=== PATIENT | female | born 1970 | race American Indian/Alaskan Native ===

== ENCOUNTER 2017-09-04 13:01 | Emergency (ER) | payer MEDICAID, OTHER ==
[2017-09-04] MEDS ORDERED: Sodium Chloride 0.9% 10 ML Syringe FLUSH PRN ×3 (14:32→14:39)
[2017-09-04] MEDS ORDERED: Metoprolol Tartrate 5 MG/5 ML SDV IVPUSH ONE (14:38)
--- NOTE | 2017-09-04 14:40 | EDM.PDOC ---
ED HPI GENERAL MEDICAL PROBLEM - General Chief Complaint: General Stated Complaint: BROUGHT FROM CLINIC, KIDNEY FUNCTION Time Seen by Provider: 09/04/17 14:28 Source of Information: Reports: Patient, Family, RN Notes Reviewed History Limitations: Reports: No Limitations - History of Present Illness INITIAL COMMENTS - FREE TEXT/NARRATIVE: 46-year-old female sent over from clinic today for further evaluation of renal function she was being evaluated by Dr. Mcintosh nephrology who called me concerned about this patient's renal function which has been worsening she has had a weight gain and fluid overload history of poorly controlled diabetes mellitus type 2 has been on lisinopril with poorly controlled blood pressure as well as ibuprofen his concern was a development of the +1 edema bilaterally and the worsening renal function. He has asked for a variety of lab work per his recommendations CBC BMP PTH phosphate liver function test vitamin D urinalysis with urine protein creatinine ratio as well as renal ultrasound and serologic workup. She has no complaints at this time - Related Data Allergies Allergy/AdvReac Type Severity Reaction Status Date / Time ampicillin Allergy Hives Verified 06/20/13 14:19 tramadol Allergy Abdominal Verified 06/20/13 14:19 Pain duloxetine HCl AdvReac Nausea Verified 07/19/14 13:04 [From Cymbalta] Penicillins AdvReac Rash Verified 07/19/14 13:04 trazodone AdvReac Delusions Verified 07/19/14 13:04 Home Meds: Home Meds Albuterol Sulfate [Proair Hfa] 2 puff IH Q4HR PRN 07/19/14 [History] Albuterol [Proventil] 1 dose NEB Q6HR PRN 07/19/14 [History] Ferrous Sulfate 325 mg PO DAILY 07/19/14 [History] Multivitamin [Multi Vitamin Daily] 1 each PO DAILY 07/19/14 [History] Furosemide [Furosemide] 20 mg PO BID 09/04/17 [History] Insulin Aspart [NovoLOG] 4 - 10 units SUBCNJ TID 09/04/17 [History] Insulin Glargine,Hum.Rec.Anlog [Lantus Solostar] 10 units SUBCNJ BEDTIME [History] Lisinopril [Lisinopril] 20 mg PO DAILY 09/04/17 [History] Metoprolol Tartrate [Metoprolol Tartrate] 25 mg PO BID 09/04/17 [History] amLODIPine [Norvasc] 5 mg PO DAILY 09/04/17 [History] cloNIDine [Catapres] 0.1 mg PO DAILY 09/04/17 [History] Past Medical History HEENT History: Reports: Impaired Vision Cardiovascular History: Reports: Hypertension Respiratory History: Reports: Asthma 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 History: Reports: 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: Neurological History: Reports: Other (See Below) Other Neuro History: bells palsy Endocrine/Metabolic History: Reports: Diabetes, Type II - Infectious Disease History Infectious Disease History: Reports: Chicken Pox, Measles, Mumps - Past Surgical History Female Surgical History: Reports: Section Social & Family History - Tobacco Use Smoking Status *Q: Light Tobacco Smoker Years of Tobacco use: 31 Packs/Tins Daily: 0.5 Used Tobacco, but Quit: No Second Hand Smoke Exposure: Yes - Caffeine Use Caffeine Use: Reports: Soda - Recreational Drug Use Recreational Drug Use: Yes 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 ED ROS GENERAL - Review of Systems Review Of Systems: See Below Constitutional: Reports: No Symptoms (Tourette's) HEENT: Reports: No Symptoms Respiratory: Reports: No Symptoms Cardiovascular: Reports: No Symptoms GI/Abdominal: Reports: No Symptoms : Reports: No Symptoms ED EXAM, GENERAL - Physical Exam Exam: See Below Exam Limited By: No Limitations General Appearance: Alert, WD/WN, No Apparent Distress Head: Atraumatic, Normocephalic Respiratory/Chest: No Respiratory Distress, Lungs Clear, Normal Breath Sounds, No Accessory Muscle Use Cardiovascular: Regular Rate, Rhythm, No Murmur Course - Vital Signs Last Recorded V/S: Last Vital Signs Temp 96.5 F 09/04/17 13:28 Pulse 81 09/04/17 15:51 Resp 16 09/04/17 15:51 BP 182/110 H 09/04/17 15:51 Pulse Ox 96 09/04/17 15:51 - Orders/Labs/Meds Orders: Active Orders 24 hr Category Date Time Status Peripheral IV Care [RC] . DIRECTED Care 09/04/17 14:33 Active Peripheral IV Care [RC] . DIRECTED Care 09/04/17 14:39 Active Sodium Chloride 0.9% [Saline Flush] Med 09/04/17 14:32 Active 10 ml FLUSH ASDIRECTED PRN Sodium Chloride 0.9% [Saline Flush] Med 09/04/17 14:32 Active 10 ml FLUSH ASDIRECTED PRN Sodium Chloride 0.9% [Saline Flush] Med 09/04/17 14:39 Active 10 ml FLUSH ASDIRECTED PRN Peripheral IV Insertion Adult [OM.PC] Urgent Oth 09/04/17 14:32 Ordered Peripheral IV Insertion Adult [OM.PC] Urgent Oth 09/04/17 14:39 Ordered Medication Orders Sodium Chloride (Saline Flush) 10 ml FLUSH ASDIRECTED PRN PRN Reason: Keep Vein Open Last Admin: 09/04/17 15:04 Dose: 10 ml Sodium Chloride (Saline Flush) 10 ml FLUSH ASDIRECTED PRN PRN Reason: Keep Vein Open Last Admin: 09/04/17 15:04 Dose: 10 ml Sodium Chloride (Saline Flush) 10 ml FLUSH ASDIRECTED PRN PRN Reason: Keep Vein Open Last Admin: 09/04/17 15:04 Dose: 10 ml Labs: Laboratory Tests 09/04/17 09/04/17 09/04/17 Range/Units 14:34 14:44 14:44 WBC 11.7 H (4.5-11.0) K/uL RBC 3.14 L (3.30-5.50) M/uL Hgb 9.7 L (12.0-15.0) g/dL Hct 29.5 L (36.0-48.0) % MCV 94 (80-98) fL MCH 31 (27-31) pg MCHC 33 (32-36) % Plt Count 342 (150-400) K/uL Neut % (Auto) 74 H (36-66) % Lymph % (Auto) 16 L (24-44) % [place] % (Auto) 5 (2-6) % Eos % (Auto) 5 H (2-4) % Baso % (Auto) 1 (0-1) % Sodium 145 (140-148) mmol/L Potassium 4.1 (3.6-5.2) mmol/L Chloride 112 H (100-108) mmol/L Carbon Dioxide 22 (21-32) mmol/L Anion Gap 15.1 H (5.0-14.0) mmol/L BUN 48 H (7-18) mg/dL Creatinine 4.0 H* (0.6-1.0) mg/dL Est Cr Clr Drug Dosing 16.80 mL/min Estimated GFR (MDRD) 12 L (>60) Glucose 147 H (74-106) mg/dL Calcium 7.8 L (8.5-10.1) mg/dL Phosphorus 6.0 H (2.5-4.9) mg/dL Magnesium 2.0 (1.8-2.4) mg/dL Total Bilirubin 0.2 (0.2-1.0) mg/dL AST 15 (15-37) U/L ALT 18 (12-78) U/L Alkaline Phosphatase 150 H (46-116) U/L Total Protein 6.1 L (6.4-8.2) g/dL Albumin 1.8 L (3.4-5.0) g/dL Globulin 4.3 H (2.3-3.5) g/dL Albumin/Globulin Ratio 0.4 L (1.2-2.2) Vitamin D 25-Hydroxy (30-100) ng/mL Urine Color Urine Appearance Urine pH (4.5-8.0) Ur Specific [place] (1.008-1.030) Urine Protein (NEGATIVE) mg/dL Urine Glucose (UA) (NEGATIVE) mg/dL Urine Ketones (NEGATIVE) mg/dL Urine Occult Blood (NEGATIVE) Urine Nitrite (NEGATIVE) Urine Bilirubin (NEGATIVE) Urine Urobilinogen (NORMAL) mg/dL Ur Leukocyte Esterase (NEGATIVE) Urine RBC (0-5) Urine WBC (0-5) Ur Epithelial Cells Amorphous Sediment Urine Bacteria Urine Mucus Ur Random Creatinine 24.5 (20.0-370.0) mg/dL U Random Total Protein 653.0 H (6.0-11.9) mg/dL Protein/Creatinin Ratio 42227.1 H (21.0-161.0) mg/g 09/04/17 09/04/17 Range/Units 14:44 15:32 WBC (4.5-11.0) K/uL RBC (3.30-5.50) M/uL Hgb (12.0-15.0) g/dL Hct (36.0-48.0) % MCV (80-98) fL MCH (27-31) pg MCHC (32-36) % Plt Count (150-400) K/uL Neut % (Auto) (36-66) % Lymph % (Auto) (24-44) % [place] % (Auto) (2-6) % Eos % (Auto) (2-4) % Baso % (Auto) (0-1) % Sodium (140-148) mmol/L Potassium (3.6-5.2) mmol/L Chloride (100-108) mmol/L Carbon Dioxide (21-32) mmol/L Anion Gap (5.0-14.0) mmol/L BUN (7-18) mg/dL Creatinine (0.6-1.0) mg/dL Est Cr Clr Drug Dosing mL/min Estimated GFR (MDRD) (>60) Glucose (74-106) mg/dL Calcium (8.5-10.1) mg/dL Phosphorus (2.5-4.9) mg/dL Magnesium (1.8-2.4) mg/dL Total Bilirubin (0.2-1.0) mg/dL AST (15-37) U/L ALT (12-78) U/L Alkaline Phosphatase (46-116) U/L Total Protein (6.4-8.2) g/dL Albumin (3.4-5.0) g/dL Globulin (2.3-3.5) g/dL Albumin/Globulin Ratio (1.2-2.2) Vitamin D 25-Hydroxy 5.1 L (30-100) ng/mL Urine Color Yellow Urine Appearance Slightly cloudy Urine pH 7.0 (4.5-8.0) Ur Specific [place] 1.005 L (1.008-1.030) Urine Protein 500 H (NEGATIVE) mg/dL Urine Glucose (UA) 50 H (NEGATIVE) mg/dL Urine Ketones Negative (NEGATIVE) mg/dL Urine Occult Blood Trace (NEGATIVE) Urine Nitrite Negative (NEGATIVE) Urine Bilirubin Negative (NEGATIVE) Urine Urobilinogen Normal (NORMAL) mg/dL Ur Leukocyte Esterase Negative (NEGATIVE) Urine RBC 0-5 (0-5) Urine WBC 0-5 (0-5) Ur Epithelial Cells Rare Amorphous Sediment Not seen Urine Bacteria Rare Urine Mucus Not seen Ur Random Creatinine (20.0-370.0) mg/dL U Random Total Protein (6.0-11.9) mg/dL Protein/Creatinin Ratio (21.0-161.0) mg/g Meds: Medications Generic Name Dose Route Start Last Admin Trade Name Freq PRN Reason Stop Dose Admin Sodium Chloride 10 ml 09/04/17 14:32 09/04/17 15:04 Saline Flush FLUSH 10 ml ASDIRECTED PRN Administration Keep Vein Open Sodium Chloride 10 ml 09/04/17 14:32 09/04/17 15:04 Saline Flush FLUSH 10 ml ASDIRECTED PRN Administration Keep Vein Open Sodium Chloride 10 ml 09/04/17 14:39 09/04/17 15:04 Saline Flush FLUSH 10 ml ASDIRECTED PRN Administration Keep Vein Open Discontinued Medications Generic Name Dose Route Start Last Admin Trade Name Freq PRN Reason Stop Dose Admin Hydralazine HCl 20 mg 09/04/17 16:16 Apresoline IVPUSH 09/04/17 16:17 ONETIME ONE Metoprolol Tartrate 2.5 mg 09/04/17 14:38 09/04/17 15:02 Lopressor IVPUSH 09/04/17 14:39 2.5 mg ONETIME ONE Administration Nitroglycerin 0.4 mg 09/04/17 15:22 09/04/17 15:28 Nitrostat SL 09/04/17 15:23 0.4 mg ONETIME ONE Administration Departure - Departure Time of Disposition: 16:31 Disposition: DC/Tfer to Acute Hospital 02 Condition: Fair Clinical Impression: Acute renal failure Qualifiers: Acute renal failure type: unspecified Qualified Code(s): N17.9 - Acute kidney failure, unspecified - Discharge Information Referrals: PCP,None [Primary Care Provider] - Forms: ED Department Discharge - My Orders Last 24 Hours: My Active Orders 09/04/17 14:32 Sodium Chloride 0.9% [Saline Flush] 10 ml FLUSH ASDIRECTED PRN Sodium Chloride 0.9% [Saline Flush] 10 ml FLUSH ASDIRECTED PRN Peripheral IV Insertion Adult [OM.PC] Urgent 09/04/17 14:33 Peripheral IV Care [RC] . DIRECTED 09/04/17 14:39 Peripheral IV Care [RC] . DIRECTED Sodium Chloride 0.9% [Saline Flush] 10 ml FLUSH ASDIRECTED PRN Peripheral IV Insertion Adult [OM.PC] Urgent - Assessment/Plan Last 24 Hours: My Active Orders 09/04/17 14:32 Sodium Chloride 0.9% [Saline Flush] 10 ml FLUSH ASDIRECTED PRN Sodium Chloride 0.9% [Saline Flush] 10 ml FLUSH ASDIRECTED PRN Peripheral IV Insertion Adult [OM.PC] Urgent 09/04/17 14:33 Peripheral IV Care [RC] . DIRECTED 09/04/17 14:39 Peripheral IV Care [RC] . DIRECTED Sodium Chloride 0.9% [Saline Flush] 10 ml FLUSH ASDIRECTED PRN Peripheral IV Insertion Adult [OM.PC] Urgent Plan: Assessment Acuity = acute Site and laterality = acute kidney injury stage GV and hypertensive urgency Etiology = unknown etiology Manifestations = none Location of injury = Home Lab values = WBC elevated 11.7 consistent leukocytosis, hemoglobin low at 9.7 consistent with normochromic anemia creatinine elevated at 4.0 consistent with acute kidney injury stage GV phosphorus low at 6.0 consistent with hypophosphatemia albumin low at 1.8 consistent with hypoalbuminemia urine protein greater than 500 consistent proteinuria leukosis greater than 50 consistent glucose urea the protein threatening ratio random is greater than 26, 000 Plan Called and discussed the case with Dr. Street at [facility] kindly accepted the patient in transport she has been having blood pressure problems consistent with hypertensive urgency she was initially given 2.5 mg metoprolol as well as nitroglycerin sublingual followed by 20 mg of hydralazine to control her blood pressure she will be transported via EMS ground This note was dictated using Silk voice recognition software please call with any questions on syntax or aiden.
[2017-09-04] MEDS ORDERED: Nitroglycerin 0.4 MG Tab.SL SL ONE (15:22)
[2017-09-04] MEDS ORDERED: hydrALAZINE 20 MG/ML SDV IVPUSH ONE (16:16)
[2017-09-04] MEDS ORDERED: niCARdipine HCl 25 MG in Sodium Chloride 0.9% 240 ML IV SCH (17:00)
[2017-09-04 17:11] VITALS: BP 218/107
== END 2017-09-04 18:05 ==
LOC: JP.ED 13:01
DX: N17.9 Acute kidney failure, unspecified (principal); I16.0 Hypertensive urgency; I10 Essential (primary) hypertension; J45.909 Unspecified asthma, uncomplicated; E11.9 Type 2 diabetes mellitus without complications; F17.210 Nicotine dependence, cigarettes, uncomplicated; Z79.4 Long term (current) use of insulin; Z79.899 Other long term (current) drug therapy; Z88.0 Allergy status to penicillin; Z88.1 Allergy status to other antibiotic agents; Z88.5 Allergy status to narcotic agent; Z88.8 Allergy status to other drugs, medicaments and biological substances
CPT/HCPCS: 36415; 80053; 81001; 82306; 82570; 83735; 84100; 84156; 85025; 96365; 96375; 99284; A9270; J0360; J7050; J3490

== ENCOUNTER 2018-04-26 16:51 | Emergency (ER) | payer MEDICARE, MEDICAID ==
[2018-04-26 17:40] VITALS: BP 134/72
--- NOTE | 2018-04-26 18:24 | EDM.PDOC ---
ED HPI GENERAL MEDICAL PROBLEM - General Chief Complaint: Cardiovascular Problem Stated Complaint: CATHITER IS LEEKING Time Seen by Provider: 04/26/18 17:43 Source of Information: Reports: Patient History Limitations: Reports: No Limitations - History of Present Illness INITIAL COMMENTS - FREE TEXT/NARRATIVE: 47 yo female presents with bloody drainage from left dialysis cath. new placement earlier this week. It was used yesterday without difficulty. pt noticed bloody drainage this AM. - Related Data Allergies Allergy/AdvReac Type Severity Reaction Status Date / Time ampicillin Allergy Hives Verified 04/26/18 17:48 tramadol Allergy Abdominal Verified 04/26/18 17:48 Pain duloxetine HCl AdvReac Nausea Verified 04/26/18 17:48 [From Cymbalta] Penicillins AdvReac Rash Verified 04/26/18 17:48 trazodone AdvReac Delusions Verified 04/26/18 17:48 Home Meds: Home Meds Albuterol Sulfate [Proair Hfa] 2 puff IH Q4HR PRN 07/19/14 [History] Albuterol [Proventil] 1 dose NEB Q6HR PRN 07/19/14 [History] Multivitamin [Multi Vitamin Daily] 1 each PO DAILY 07/19/14 [History] Insulin Aspart [NovoLOG] 4 - 10 units SUBCNJ TID 09/04/17 [History] Insulin Glargine,Hum.Rec.Anlog [Lantus Solostar] 10 units SUBCNJ BEDTIME [History] amLODIPine [Norvasc] 5 mg PO DAILY 09/04/17 [History] cloNIDine [Catapres] 0.1 mg PO DAILY 09/04/17 [History] Aspirin 04/26/18 [History] Clopidogrel Bisulfate [Clopidogrel] 04/26/18 [History] Gabapentin [Neurontin] 04/26/18 [History] Isosorbide Dinitrate 04/26/18 [History] Past Medical History HEENT History: Reports: Impaired Vision Cardiovascular History: Reports: Hypertension Respiratory History: Reports: Asthma 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 History: Reports: Renal Disease [employer]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: Neurological History: Reports: Other (See Below) Other Neuro History: bells palsy Endocrine/Metabolic History: Reports: Diabetes, Type II - Infectious Disease History Infectious Disease History: Reports: Chicken Pox, Measles, Mumps - Past Surgical History Female Surgical History: Reports: Section Social & Family History - Tobacco Use Smoking Status *Q: Current Every Day Smoker Years of Tobacco use: 30 Packs/Tins Daily: 0.5 - Caffeine Use Caffeine Use: Reports: Soda ED ROS GENERAL - Review of Systems Review Of Systems: See Below Constitutional: Denies: Fever, Chills Respiratory: Denies: Shortness of Breath Cardiovascular: Denies: Chest Pain ED EXAM, GENERAL - Physical Exam Exam: See Below Exam Limited By: No Limitations General Appearance: Alert, WD/WN, No Apparent Distress Neck: Normal Inspection, Supple, Non-Tender, Full Range of Motion. No: Lymphadenopathy (R), Lymphadenopathy (L) Respiratory/Chest: No Respiratory Distress, Lungs Clear, Normal Breath Sounds, No Accessory Muscle Use, Chest Non-Tender Cardiovascular: Regular Rate, Rhythm, Other (left chest tunnel cath small amount dried bloody drainage) Course - Vital Signs Last Recorded V/S: Last Vital Signs Temp 35.1 C L 04/26/18 17:39 Pulse 67 04/26/18 17:39 Resp 14 04/26/18 17:39 BP 134/72 04/26/18 17:39 Pulse Ox 100 04/26/18 17:39 - Re-Assessments/Exams Free Text/Narrative Re-Assessment/Exam: 04/26/18 18:32 dressing was changed by nurse. Crusted bloody drainage. redressed and monitored. no return of bleeding 04/26/18 18:46 04/26/18 18:48 pt left ER without reevaluation Departure - Departure Time of Disposition: 18:45 Disposition: Home, Self-Care 01 Condition: Good Clinical Impression: Bleeding due to dialysis catheter placement Qualifiers: Encounter type: initial encounter Qualified Code(s): T82.838A - Hemorrhage due to vascular prosthetic devices, implants and grafts, initial encounter Referrals: PCP,None [Primary Care Provider] - Forms: ED Department Discharge Additional Instructions: return if bleeding continues
== END 2018-04-26 18:52 | disposition home or self-care (01) ==
LOC: JP.ED 16:51
DX: T82.838A Hemorrhage due to vascular prosthetic devices, implants and grafts, initial encounter (principal); I10 Essential (primary) hypertension; E11.9 Type 2 diabetes mellitus without complications; F17.210 Nicotine dependence, cigarettes, uncomplicated; Z79.4 Long term (current) use of insulin; Z79.82 Long term (current) use of aspirin; Z79.899 Other long term (current) drug therapy; Z88.0 Allergy status to penicillin; Z88.1 Allergy status to other antibiotic agents; Z88.5 Allergy status to narcotic agent; Z88.8 Allergy status to other drugs, medicaments and biological substances
CPT/HCPCS: 99284

== ENCOUNTER 2018-06-06 07:45 | Emergency (ER) | payer MEDICARE, MEDICAID ==
--- NOTE | 2018-06-06 08:16 | EDM.PDOC ---
ED HPI GENERAL MEDICAL PROBLEM - General Chief Complaint: General Stated Complaint: MEDICAL VIA [facility] Time Seen by Provider: 06/06/18 08:00 Source of Information: Reports: Patient, EMS History Limitations: Reports: No Limitations - History of Present Illness INITIAL COMMENTS - FREE TEXT/NARRATIVE: 47-year-old female with renal failure, gets dialysis 3 times a week but missed her run. She was in the hospital last week for anemia, and left AMA. She is having ongoing vaginal bleeding. This morning she has dialysis scheduled for 10:00, but she woke up at 4 AM not feeling well. Mild nausea, no shortness of breath or pain. Her main complaint was she was lightheaded when standing. She called the ambulance and refused to go to [place] so they brought her here. She has dialysis scheduled in 2 hours. Her vitals are stable. According to the patient they don't know why she is becoming anemic. - Related Data Allergies Allergy/AdvReac Type Severity Reaction Status Date / Time ampicillin Allergy Hives Verified 06/06/18 07:56 tramadol Allergy Abdominal Verified 06/06/18 07:56 Pain duloxetine HCl AdvReac Nausea Verified 06/06/18 07:56 [From Cymbalta] Penicillins AdvReac Rash Verified 06/06/18 07:56 trazodone AdvReac Delusions Verified 06/06/18 07:56 Home Meds: Home Meds Albuterol Sulfate [Proair Hfa] 2 puff IH Q4HR PRN 07/19/14 [History] Albuterol [Proventil] 1 dose NEB Q6HR PRN 07/19/14 [History] Multivitamin [Multi Vitamin Daily] 1 each PO DAILY 07/19/14 [History] Insulin Aspart [NovoLOG] 4 - 10 units SUBCNJ TID 09/04/17 [History] Insulin Glargine,Hum.Rec.Anlog [Lantus Solostar] 10 units SUBCNJ BEDTIME [History] amLODIPine [Norvasc] 5 mg PO DAILY 09/04/17 [History] cloNIDine [Catapres] 0.1 mg PO DAILY 09/04/17 [History] Aspirin 04/26/18 [History] Clopidogrel Bisulfate [Clopidogrel] 04/26/18 [History] Gabapentin [Neurontin] 04/26/18 [History] Isosorbide Dinitrate 04/26/18 [History] Past Medical History HEENT History: Reports: Impaired Vision Cardiovascular History: Reports: Hypertension, [place] Respiratory History: Reports: Asthma 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 History: Reports: Dialysis, 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: Neurological History: Reports: Other (See Below) Other Neuro History: bells palsy Psychiatric History: Reports: Addiction Endocrine/Metabolic History: Reports: Diabetes, Type II - Infectious Disease History Infectious Disease History: Reports: Chicken Pox, Measles, Mumps - Past Surgical History Cardiovascular Surgical History: Reports: Coronary Artery Stent Female Surgical History: Reports: Section Social & Family History - Tobacco Use Smoking Status *Q: Light Tobacco Smoker Years of Tobacco use: 30 Packs/Tins Daily: 0.5 - Caffeine Use Caffeine Use: Reports: Soda - Recreational Drug Use Recreational Drug Use: Yes Recreational Drug Type: Reports: Methamphetamine ED ROS GENERAL - Review of Systems Review Of Systems: See Below Constitutional: Reports: Malaise. Denies: Fever, Chills HEENT: Reports: No Symptoms Respiratory: Denies: Shortness of Breath Cardiovascular: Denies: Chest Pain Endocrine: Reports: Fatigue GI/Abdominal: Reports: Nausea. Denies: Hematochezia : Reports: No Symptoms Neurological: Reports: Dizziness (When standing) Free Text/Narrative/Comment: Patient is having ongoing vaginal bleeding, is wearing depends because of intermittent clots and persistent spotting. ED EXAM, GENERAL - Physical Exam Exam: See Below Exam Limited By: No Limitations General Appearance: Alert, No Apparent Distress Eye Exam: Bilateral Eye: EOMI, Normal Inspection (No jaundice), Other (Pale conjunctiva) Respiratory/Chest: No Respiratory Distress, Lungs Clear Cardiovascular: Regular Rate, Rhythm GI/Abdominal: Soft, Non-Tender Extremities: No: Pedal Edema Neurological: Alert, Oriented Psychiatric: Normal Affect, Normal Mood Skin Exam: Warm, Dry, Other (She looks somewhat ashen in color) Course - Vital Signs Last Recorded V/S: Last Vital Signs Temp 96.4 F 06/06/18 10:22 Pulse 93 06/06/18 10:22 Resp 16 06/06/18 10:22 BP 157/83 H 06/06/18 10:22 Pulse Ox 100 06/06/18 10:10 - Orders/Labs/Meds Orders: Active Orders 24 hr Category Date Time Status Transfuse Red Blood Cells [COMM] Stat Oth 06/06/18 09:36 Ordered Transfuse Red Blood Cells [COMM] Stat Oth 06/06/18 11:24 Ordered Labs: Laboratory Tests 06/06/18 06/06/18 06/06/18 Range/Units 08:33 08:33 08:33 WBC 9.0 (4.5-11.0) K/uL RBC 1.71 L (3.30-5.50) M/uL Hgb 5.2 L* D (12.0-15.0) g/dL Hct 16.8 L (36.0-48.0) % MCV 98 (80-98) fL MCH 30 (27-31) pg MCHC 31 L (32-36) % Plt Count 309 (150-400) K/uL Neut % (Auto) 73 H (36-66) % Lymph % (Auto) 15 L (24-44) % [place] % (Auto) 8 H (2-6) % Eos % (Auto) 3 (2-4) % Baso % (Auto) 1 (0-1) % Sodium 136 L (140-148) mmol/L Potassium 5.9 H (3.6-5.2) mmol/L Chloride 100 (100-108) mmol/L Carbon Dioxide 24 (21-32) mmol/L Anion Gap 17.9 H (5.0-14.0) mmol/L BUN 61 H (7-18) mg/dL Creatinine 10.0 H* D (0.6-1.0) mg/dL Est Cr Clr Drug Dosing 6.91 mL/min Estimated GFR (MDRD) 4 L (>60) Glucose 106 (74-106) mg/dL Calcium 8.0 L (8.5-10.1) mg/dL Blood Type A POSITIVE Gel Antibody Screen Negative Crossmatch See Detail - Re-Assessments/Exams Free Text/Narrative Re-Assessment/Exam: 06/06/18 08:31 CBC and BMP will be obtained to rule out critical electrolyte levels, and check hemoglobin level 06/06/18 08:58 Hemoglobin returned 5.2, potassium 5.6, creatinine 10. Discussed her condition with Dr. Portillo, hospitalist in [facility], and he kindly accepted her in transfer. 06/06/18 09:26 Communication with [facility], there will be a delay in transfer until a bed opens so patient will be transfused with 1 unit of packed RBCs with a second type and crossed to be given if there is a significant delay. Departure - Departure Time of Disposition: 11:48 Disposition: DC/Tfer to Other 70 Condition: Fair Clinical Impression: Anemia, blood loss Renal failure Qualifiers: Renal failure chronicity: chronic Chronic kidney disease stage: on chronic dialysis Qualified Code(s): N18.6 - End stage renal disease - Discharge Information Referrals: PCP,None [Primary Care Provider] - Forms: ED Department Discharge Care Plan Goals: Patient will be transferred to [facility] in [place] for inpatient admission for treatment of severe anemia, and renal failure. - My Orders Last 24 Hours: My Active Orders 06/06/18 09:36 Transfuse Red Blood Cells [COMM] Stat 06/06/18 11:24 Transfuse Red Blood Cells [COMM] Stat - Assessment/Plan Last 24 Hours: My Active Orders 06/06/18 09:36 Transfuse Red Blood Cells [COMM] Stat 06/06/18 11:24 Transfuse Red Blood Cells [COMM] Stat
[2018-06-06 10:56] VITALS: BP 157/83
== END 2018-06-06 11:48 | disposition other institution (70) ==
LOC: JP.ED 07:45
DX: I12.9 Hypertensive chronic kidney disease with stage 1 through stage 4 chronic kidney disease, or unspecified chronic kidney disease (principal); E11.22 Type 2 diabetes mellitus with diabetic chronic kidney disease; N18.9 Chronic kidney disease, unspecified; D63.1 Anemia in chronic kidney disease; F17.210 Nicotine dependence, cigarettes, uncomplicated; Z99.2 Dependence on renal dialysis; Z79.4 Long term (current) use of insulin; Z79.899 Other long term (current) drug therapy; Z88.1 Allergy status to other antibiotic agents; Z88.6 Allergy status to analgesic agent; Z88.0 Allergy status to penicillin; Z88.8 Allergy status to other drugs, medicaments and biological substances
CPT/HCPCS: 36415; 36430; 80048; 85025; 86850; 86900; 86901; 86920; 86922; 99285; P9016